=== PATIENT | female | born 1970 | race Caucasian/White ===

== ENCOUNTER 2018-06-26 23:31 | Emergency (ER) | payer OTHER ==
[~2018-06-26] VITALS: Ht 160 cm; Wt 66.7 kg
[2018-06-26 23:49] VITALS: Ht 160 cm; Wt 66.7 kg
[2018-06-27] MEDS ORDERED: KETOROLAC 15 MG INJ IM STA (04:55)
--- NOTE | 2018-06-27 04:59 | ERD ---
ER Documentation Chief Complaint Chief Complaint cough x days hx asthma; smokes; lives in a shellter; back pain HPI 47-year-old female, with history of asthma, tobacco use, lives in a prison. She presents with cough, she has not any shortness of breath, she had no fever. She denies any alleviating or aggravating factors. She has no chest pain. No recent travel, no recent antibiotic use. ROS All systems reviewed and are negative except as per history of present illness. Medications Home Meds Active Scripts Azithromycin* (Zithromax*) 500 Mg Tablet, 500 MG PO DAILY for 5 Days, TAB Prov:NOVA DELACRUZ MD 06/27/18 Dextromethorphan Hb-Promethazine Hcl* (Promethazine DM* Syrup) 473 Ml Syrup, 5 ML PO Q6 PRN for COUGH for 7 Days, ML Prov:NOVA DELACRUZ MD 06/27/18 Reported Medications Loratadine* (Loratadine*) 10 Mg Tablet, 10 MG PO DAILY, #30 TAB 06/28/18 Ibuprofen* (Ibuprofen*) 600 Mg Tablet, 600 MG PO Q8, TAB 06/28/18 Allergies Allergies: Coded Allergies: No Known Allergy (Unverified , 06/28/18) PMhx/Soc History of Surgery: Yes (Hysterectomy,Appendectomy,BTL,bowel surgery,Tonsillectomy) Anesthesia Reaction: No Hx Neurological Disorder: No Hx Respiratory Disorders: Yes (Asthma) Hx Cardiac Disorders: No Hx Psychiatric Problems: Yes (Anxiety) Hx Miscellaneous Medical Probl: Yes (Bowel obstruction,sleep apnea,hernia) Hx Alcohol Use: No Hx Substance Use: No Hx Tobacco Use: Yes Smoking Status: Current some day smoker Physical Exam Vitals Physical Exam Const: No acute distress Head: Atraumatic Eyes: Normal Conjunctiva ENT: Normal External Ears, Nose and Mouth. Neck: Full range of motion. No meningismus. Resp: Clear to auscultation bilaterally Cardio: Regular rate and rhythm, no murmurs Abd: Soft, non tender, non distended. Normal bowel sounds Skin: No petechiae or rashes Back: No midline or flank tenderness Ext: No cyanosis, or edema Neur: Awake and alert Psych: Normal Mood and Affect Results 24 hrs Laboratory Tests Test 06/27/18 05:36 POC Beta HCG, Qualitative NEGATIVE Current Medications Medications Dose Sig/Jose Alejandro Start Time Status Last (Trade) Ordered Route PRN Stop Time Admin Dose Reason Admin Ketorolac 15 mg ONCE STAT 06/27/18 DC 06/27/18 Tromethamine IM 04:55 06/27/18 05:44 (Toradol) 05:38 Procedures/MDM 47-year-old female, who presents for relation of cough, well-appearing nontoxic in no respiratory distress. Given tobacco use, as well as history of homelessness, with high risk for restaurant infection, start azithromycin, at discharge the patient was in no distress. Departure Diagnosis: Primary Impression: Cough Condition: Stable NOVA DELACRUZ MD Jun 27, 2018 04:59
[2018-06-27] MEDS ORDERED: AZIT500T3 PO (05:01)
[2018-06-27] MEDS ORDERED: D-ME473S2 PO (05:01)
[2018-06-27 05:48] VITALS: BP 138/72; PULSE 98; RESP 16
[2018-06-28] MEDS ORDERED: IBUP-1542 PO (17:23)
[2018-06-28] MEDS ORDERED: LORA10TA3 PO (17:24)
== END 2018-06-27 05:48 | disposition home or self-care (01) ==
LOC: E/R 23:31
DX: R05 Cough (principal); J45.909 Unspecified asthma, uncomplicated; F17.210 Nicotine dependence, cigarettes, uncomplicated
CPT/HCPCS: 81025; J1885; 96372

== ENCOUNTER 2018-06-28 15:52 | Emergency (ER) | payer OTHER ==
[~2018-06-28] VITALS: Wt 58.0 kg
[~2018-06-28 15:52] MED LIST: AZIT500T3 PO; D-ME473S2 PO
[2018-06-28] MEDS ORDERED: ONDANSETRON 4 MG INJ IV STA (16:17)
[2018-06-28] MEDS ORDERED: SOD CHLORIDE 0.9% 1,000 ML IV STA (16:17)
[2018-06-28] MEDS ORDERED: KETOROLAC 15 MG INJ IV STA (16:20)
--- NOTE | 2018-06-28 16:21 | ERD ---
ER Documentation Chief Complaint Chief Complaint C/O DIZZINESS HPI 47-year-old woman complains of a few days of intermittent dizziness but she is also had nasal congestion, rhinorrhea, cough. She denies fevers or chills, no vomiting or diarrhea, no complaints of chest pain or shortness of breath. ROS All systems reviewed and are negative except as per history of present illness. Medications Home Meds Active Scripts Azithromycin* (Zithromax*) 500 Mg Tablet, 500 MG PO DAILY for 5 Days, TAB Prov:NOVA DELACRUZ MD 06/27/18 Dextromethorphan Hb-Promethazine Hcl* (Promethazine DM* Syrup) 473 Ml Syrup, 5 ML PO Q6 PRN for COUGH for 7 Days, ML Prov:NOVA DELACRUZ MD 06/27/18 Reported Medications Loratadine* (Loratadine*) 10 Mg Tablet, 10 MG PO DAILY, #30 TAB 06/28/18 Ibuprofen* (Ibuprofen*) 600 Mg Tablet, 600 MG PO Q8, TAB 06/28/18 Allergies Allergies: Coded Allergies: No Known Allergy (Unverified , 06/28/18) PMhx/Soc History of Surgery: Yes (Hysterectomy,Appendectomy,BTL,bowel surgery,Tonsillectomy) Anesthesia Reaction: No Hx Neurological Disorder: No Hx Respiratory Disorders: Yes (Asthma) Hx Cardiac Disorders: No Hx Psychiatric Problems: Yes (Anxiety) Hx Miscellaneous Medical Probl: Yes (Bowel obstruction,sleep apnea,hernia) Hx Alcohol Use: No Hx Substance Use: No Hx Tobacco Use: Yes FmHx Family History: No diabetes Physical Exam Vitals Vital Signs Date Temp Pulse Resp B/P (MAP) Pulse Ox O2 O2 Flow FiO2 Time Delivery Rate 06/28/18 97.5 78 20 128/70 99 Room Air 18:02 (89) 06/28/18 98.1 80 18 115/74 99 16:09 (88) Physical Exam GENERAL: Well-developed, well-nourished, well-hydrated, in no apparent distress, looks nontoxic in appearance HEENT: Positive nasal congestion, no cervical spine tenderness or step-off deformities, no goiter, no jaundice or icterus, extraocular movements intact without pain. No submandibular induration, and no pharyngeal erythema NEURO: Alert and oriented 3, cranial nerves II through XII intact bilaterally, pupils equal round reactive to light, no focal deficits or facial asymmetry, sensation intact distally Strength 5/5 in upper and lower extremities bilaterally CARDIAC: Regular rate and rhythm, no murmurs rubs or gallops LUNGS: Clear bilaterally no wheezing crackles or stridor SKIN: Warm and dry to touch, no abrasions, contusions, or hematomas, no lacerations, no ecchymosis, no target lesions, and without ulcers EXTREMITIES: No clubbing cyanosis or edema, calves are bilaterally symmetrical, no Homans sign, no popliteal cord sign. Distal pulses equal and bilateral PSYCH: Normal affect without agitation or irritability Result Diagram: 06/28/18 1635 06/28/18 1635 Results 24 hrs Laboratory Tests Test 06/28/18 16:35 White Blood Count 7.4 10^3/ul Red Blood Count 4.16 10^6/ul Hemoglobin 12.2 g/dl Hematocrit 36.1 % Mean Corpuscular Volume 86.8 fl Mean Corpuscular Hemoglobin 29.3 pg Mean Corpuscular Hemoglobin Concent 33.8 g/dl Red Cell Distribution Width 13.2 % Platelet Count 281 10^3/UL Mean Platelet Volume 9.7 fl Immature Granulocytes % 0.300 % Neutrophils % 60.0 % Lymphocytes % 25.1 % Monocytes % 10.6 % Eosinophils % 3.1 % Basophils % 0.9 % Nucleated Red Blood Cells % 0.0 /100WBC Immature Granulocytes # 0.020 10^3/ul Neutrophils # 4.5 10^3/ul Lymphocytes # 1.9 10^3/ul Monocytes # 0.8 10^3/ul Eosinophils # 0.2 10^3/ul Basophils # 0.1 10^3/ul Nucleated Red Blood Cells # 0.0 10^3/ul Sodium Level 141 mmol/L Potassium Level 3.8 mmol/L Chloride Level 107 mmol/L Carbon Dioxide Level 25 mmol/L Anion Gap 9 Blood Urea Nitrogen 20 mg/dl Creatinine 0.49 mg/dl Est Glomerular Filtrat Rate mL/min > 60 mL/min Glucose Level 83 mg/dl Calcium Level 9.5 mg/dl Total Bilirubin 0.8 mg/dl Direct Bilirubin 0.00 mg/dl Indirect Bilirubin 0.8 mg/dl Aspartate Amino Transf (AST/SGOT) 24 IU/L Alanine Aminotransferase (ALT/SGPT) 17 IU/L Alkaline Phosphatase 79 IU/L Troponin I < 0.012 ng/ml Total Protein 7.3 g/dl Albumin 4.2 g/dl Globulin 3.10 g/dl Albumin/Globulin Ratio 1.35 Lipase 126 U/L Current Medications Medications Dose Sig/Jose Alejandro Start Time Status Last (Trade) Ordered Route PRN Stop Time Admin Dose Reason Admin Sodium 1,000 ml @ Q1H STAT 06/28/18 DC 06/28/18 Chloride 1,000 mls/hr IV 16:17 06/28/18 16:38 17:16 Ondansetron 4 mg ONCE STAT 06/28/18 DC 06/28/18 HCl (Zofran IV 16:17 06/28/18 16:41 Inj) 16:18 Ketorolac 15 mg ONCE STAT 06/28/18 DC 06/28/18 Tromethamine IV 16:20 06/28/18 16:39 (Toradol) 16:22 Procedures/MDM IV line was established patient was placed on court recording monitor rhythm strip revealed a sinus rhythm at about 80 bpm with upright P and T waves. Patient was afebrile EKG performed, read by me revealed a normal sinus rhythm at 81 bpm, normal axis, narrow QRS complex, no concerning ST elevations or depressions noted, QT interval normal I administered 1 L normal saline IV, Zofran 4 mg IV, Toradol 15 mg IV CBC was normal, electrolytes revealed dehydration with a BUN/creatinine of 20/0.5, liver function tests normal, troponin negative. Differential diagnoses considered, included but not limited to acute coronary syndrome, pulmonary embolism, aortic dissection, abdominal aortic aneurysm, s epsis, stroke, meningitis, encephalitis, pneumonia, appendicitis, cholecystitis, bowel obstruction, pyelonephritis, nephrolithiasis, cystitis, as well as metabolic, hematologic, and electrolyte abnormalities. As well as abscess, cellulitis, fractures, and dislocations. Patient feels much better at this time, and vital signs are normal, symptoms have improved. I did give strict instructions to return to the ED if symptoms continue or worsen, patient will otherwise follow-up with primary care madelyn jaime. Patient understood instructions and agreed to plan. Disclaimer: Inadvertent spelling and grammatical errors are likely due to EHR/dictation software use and do not reflect on the overall quality of patient care. Also, please note that the electronic time recorded on this note does not necessarily reflect the actual time of the patient encounter. Departure Diagnosis: Primary Impression: Dizziness Additional Impression: Acute URI Condition: Good NOVA NELSON MD Jun 28, 2018 16:21
[2018-06-28] MEDS ORDERED: IBUP-1542 PO (17:23)
[2018-06-28] MEDS ORDERED: LORA10TA3 PO (17:24)
[2018-06-28 18:02] VITALS: BP 128/70; PULSE 78; RESP 20
== END 2018-06-28 18:03 | disposition home or self-care (01) ==
LOC: E/R 15:52
DX: R42 Dizziness and giddiness (principal); J45.909 Unspecified asthma, uncomplicated; Z87.891 Personal history of nicotine dependence
CPT/HCPCS: 80053; 83690; 84484; 85025; 96374; 96375; J1885; J2405; J7030; Z7502